=== PATIENT | male | born 1975 | race Caucasian/White ===

== ENCOUNTER 2016-08-16 19:17 | Inpatient (IN) | payer OTHER ==
--- NOTE | ~2016-08-16 | DS ---
Discharge Summary [facility] [address] [facility] [place]. [address] NAME: MARLON BLANCO : 71 STATUS : DIS IN PAT#: [id number] AGE: 40 ADM/REG DATE : 08/16/16 MR#: [id number] REPORT SERV DATE: 08/26/16 DICTATED BY: MARLON MOE DATE: 08/25/16 REPORT STATUS : Draft TRANSCRIBED BY: MODL DATE: 08/25/16 Data Collection from hospitalization DISCHARGE DIAGNOSES: 1. Displaced left femoral neck fracture. 2. Asthma. CONSULTATIONS: None. PROCEDURES: 1. Left total hip arthroplasty, 08/17/2016. 2. CT scan of the pelvis without contrast, 08/16/2016. PATHOLOGY: Bone and tissue, left hip - intramedullary hemorrhage (history of fracture with thin bone and trabeculae). DISCHARGE MEDICATIONS: Zyrtec 10 mg daily as needed, ferrous sulfate 300 mg before breakfast and supper, Advair Diskus one puff via inhaler twice a day, Theragran tablets one tablet daily, Percocet 5/325 one to two tablets every four hours as needed, and Coumadin 5 mg daily. CONDITION ON DISCHARGE: Stable. DISPOSITION: The patient was discharged home on a regular diet with activities as instructed. He would follow up at [facility], 08/24/2012. [facility], 08/22/2016. HOSPITAL COURSE: This is a 40-year-old man who slipped and fell while walking down a ramp on his back deck on the day prior to this admission. He fell on his left side. He had immediate onset of severe left hip pain and was unable to ambulate after the fall. He presented to the [facility] emergency room and x-rays revealed displaced left femoral neck fracture. Treatment options were discussed, and it was elected to proceed with surgical intervention. He was admitted to the hospital at this time for further evaluation and treatment. Upon admission, a CT scan of the pelvis was performed and showed acute impaction fracture of the left femoral neck fracture. The fracture apex was directed anteriorly. The following day, he was taken to the operating room where he underwent the above-mentioned procedure, he tolerated this well, and there were no complications. On postop day #1, he had normal distal pulses. He had good pain control. The FASHION CONSULTANT was discontinued. He remained medically stable. He was evaluated by Occupational and Physical Therapy. Discharge planning was performed. On 08/19/2016, he continued to progress. He had no edema. Discharge instructions were given. Due to his improved and stable condition, he was discharged home with the above-stated instructions. Information collected by: Vianey Mansfield Discharge Summary [id number] [place]. [address] NAME: MARLON BLANCO : 71 STATUS : DIS IN PAT#: [id number] AGE: 40 ADM/REG DATE : 08/16/16 MR#: [id number] REPORT SERV DATE: 08/26/16 DICTATED BY: MARLON MOE DATE: 08/25/16 REPORT STATUS : Draft TRANSCRIBED BY: JOSE ALBERTO DATE: 08/25/16 I submit the above information as my discharge summary. TG/JOSE ALBERTO Marlon Moe M.D. / [id number] CC: Niraj Olvera M.D.
--- NOTE | ~2016-08-16 | OP ---
Record Of Operation [facility] [address] [place]. [address] NAME: MARLON STOCK : 71 STATUS : ADM IN PAT#: [id number] AGE: 40 ADM/REG DATE : 08/16/16 MR#: [id number] REPORT SERV DATE: 08/17/16 DICTATED BY: MARLON MOE DATE: 08/17/16 REPORT STATUS : Draft TRANSCRIBED BY: MODL DATE: 08/17/16 DATE OF PROCEDURE: 08/17/2016 PREOPERATIVE DIAGNOSIS: Displaced left femoral neck fracture. POSTOPERATIVE DIAGNOSIS: Displaced left femoral neck fracture. PROCEDURE: Left total hip arthroplasty. SURGEON: Marlon Moe M.D. STORAGE FACILITY RENTAL CLERK: Tommie Caro. ANESTHESIA: General endotracheal. ESTIMATED BLOOD LOSS: 300 mL. COMPLICATIONS: None. DRAINS: ConstaVac x1. IMPLANTS: DePuy Limestone 56 mm outer diameter cup with a 36 mm inner diameter, +4 lateralized polyethylene liner. The femoral component was size 6 high offset [place] stem with a 36 mm, +8.5 head and neck segment. INDICATIONS FOR SURGERY: Mr. Stock is a 40-year-old male who sustained the above-mentioned fracture in a fall. It was recommended he undergo total hip arthroplasty. Risks of the procedure as detailed in the history and physical and operative consent were discussed prior to proceeding. He fully understood and has requested to proceed. PROCEDURE IN DETAIL: The patient was brought to the operating room and after adequate induction of anesthesia, was positioned in the lateral decubitus position using the hip die grinder positioners. All appropriate pressure points were padded and axillary roll was placed. The appropriate operative site was identified and confirmed by both the surgeon and the operating room staff in time out. The hip was then prepped and draped in the usual sterile fashion. A posterior lateral approach to the hip was performed. The skin and subcutaneous tissues were incised sharply using a #10 blade. Electrocautery was used as needed to maintain hemostasis. The fascia yi and fascia over the gluteus chad were divided in line with the incision. The fibers of the gluteus chad were split bluntly. The sciatic nerve was identified and carefully protected throughout the remainder of the case. The Charnley retractor was then placed. The hip was placed in internal rotation and the superior border of the piriformis tendon identified. A full thickness capsulotomy was begun at the superior border of the piriformis tendon and extended anteriorly/inferiorly using an Record Of Operation [facility] [address] [facility]. [address] NAME: MARLON STOCK : 71 STATUS : ADM IN PAT#: [id number] AGE: 40 ADM/REG DATE : 08/16/16 MR#: [id number] REPORT SERV DATE: 08/17/16 DICTATED BY: MARLON MOE DATE: 08/17/16 REPORT STATUS : Draft TRANSCRIBED BY: JOSE ALBERTO DATE: 08/17/16 inside/out technique. A portion of the short external rotators were taken down in the capsular exposure. Leg length measurements were then taken. The hip was then dislocated posteriorly. The femoral neck was then marked and resected at the predetermined level from templating using an oscillating saw. Attention was then turned to the femur and the medial aspect of the greater trochanter was debrided of all cortical bone and soft tissue. The intramedullary canal was opened with a triple reamer. The femur was then sequentially reamed to the appropriate size [place] stem. The femur was then sequentially broached, once again to the appropriately sized implant. The femoral neck resection was slightly revised using a calcar mill to bring it to the level of the femoral broach. The broach was then removed. Attention was then turned to the acetabulum and the acetabulum was debrided of all labral remnants, osteophytes, and the medial fibrofatty tissue was debrided and the true medial wall of the acetabulum identified. The acetabulum was then sequentially reamed from a size 43 mm hemispherical reamer to a reamer 1 mm smaller than the final component. At this level there was circumferential bleeding of subchondral bony surface. Any subchondral cysts were curetted. The true acetabular cup was then impacted into the acetabulum and a trial liner placed. A trial reduction was then performed. The leg lengths were felt to be equal. The hip was stable at its limited extension and external rotation and to 90 degrees of flexion and 80 degrees of internal rotation. The hip was also stable in the position of sleep. At this point all trial components were removed and the acetabular hole machine assembler for puller over placed in the acetabular shell. The true acetabular liner was then impacted in the clean acetabular shell. The femoral canal was then copiously irrigated with normal saline and suctioned dry. The true femoral stem was then impacted into the femur to an identical depth and identical anteversion of the trial component. A trial reduction was once again performed to assure that there was no change in leg length or stability. The true femoral head ball was then impacted into the clean femoral taper. The acetabulum was inspected to be sure it was free of all foreign matter and the hip reduced. The wound was copiously irrigated with pulsatile lavage and normal saline. The capsule was repaired using interrupted #1 Vicryl suture in [id number] fashion. The short external rotators were repaired using #5 Ethibond in horizontal mattress fashion. Drain placed deep to the fascia. The fascia was closed with interrupted #5 Ethibond sutures in [id number] fashion. The subcutaneous tissues approximated with interrupted 2-0 Vicryl suture and the skin stapled. Sterile dressing applied. The patient awakened and taken to the recovery room in stable condition. POSTOP PLAN: The patient is to be mobilized weightbearing as tolerated with physical therapy. Posterior hip dislocation precautions. The patient is to be on Coumadin and mechanical deep venous thrombosis prophylaxis. Record Of Operation [id number] [facility] [place]. [address] NAME: BELLAMARLONELL : 71 STATUS : ADM IN [facility]#: [id number] AGE: 40 ADM/REG DATE : 08/16/16 MR#: [id number] REPORT SERV DATE: 08/17/16 DICTATED BY: MARLON MOE DATE: 08/17/16 REPORT STATUS : Draft TRANSCRIBED BY: JOSE ALBERTO DATE: 08/17/16 JOHN/JOSE ALBERTO Marlon Moe M.D. / [id number] CC: Nriaj Olvera M.D.
--- NOTE | ~2016-08-16 | HP ---
History And Physical [id number] [facility] [place]. [address] NAME: MARLON STOCK : 71 STATUS : ADM IN [facility]#: [id number] AGE: 40 ADM/REG DATE : 08/16/16 MR#: [id number] REPORT SERV DATE: 08/17/16 DICTATED BY: MARLON MOE DATE: 08/17/16 REPORT STATUS : Draft TRANSCRIBED BY: MODL DATE: 08/17/16 DATE OF ADMISSION: 08/16/2016 CHIEF COMPLAINT: Left hip pain. HISTORY OF PRESENT ILLNESS: Mr. Stock is a 40-year-old male who slipped and fell walking down a ramp on his back deck yesterday. He fell on his left side. He had immediate onset of severe left hip pain and was unable to ambulate after the fall. He presented to [facility] Emergency Room where x-rays showed a displaced left femoral neck fracture. I have now been asked to see him for evaluation and treatment. On questioning, he complains of only left hip pain. He denies any loss of consciousness or mental status changes at the time of the fall. He has no previous history of any hip pain. PAST MEDICAL HISTORY: Significant for asthma. MEDICINES ON ADMISSION: Zyrtec 10 mg p.o. daily p.r.n., Advair Diskus one puff twice daily, and Motrin p.r.n. ALLERGIES: HE HAS NO KNOWN DRUG ALLERGIES. SOCIAL HISTORY: He lives at home with his family. He does not smoke or drink. REVIEW OF SYSTEMS: Negative for any recent history of chest pain or shortness of breath. He denies any history of cancer. He has no history of diabetes or other endocrine disorders. PHYSICAL EXAMINATION: GENERAL: He is awake, alert, and oriented. VITAL SIGNS: Temperature 97.8, pulse 77, and blood pressure 123/70. HEENT: Normocephalic and atraumatic. Pupils equal, round, and reactive. NECK: Nontender. HEART: Regular rate and rhythm. LUNGS: Clear to auscultation. ABDOMEN: Soft, nontender, and nondistended. EXTREMITIES: He has no evidence of bony injury to either upper extremity or his right lower extremity. With regard to his left lower extremity, it is shortened and externally rotated. He is non-tolerant to any attempted active or passive left hip range of motion due to severe pain. He has no tenderness in the mid thigh distally. He has normal sciatic nerve function on the left and palpable pedal pulses. DIAGNOSTIC STUDIES: X-rays of his left hip show displaced left femoral neck fracture. He just has kind of a possible lytic area in his left femoral head. However, CT scan does not show any evidence of a pathologic lesion associated with the fracture. IMPRESSION: Displaced left femoral neck fracture. History And Physical [address] [address] NAME: MARLON STOCK : 71 STATUS : ADM IN [facility]#: [id number] AGE: 40 ADM/REG DATE : 08/16/16 MR#: [id number] REPORT SERV DATE: 08/17/16 DICTATED BY: MARLON MOE DATE: 08/17/16 REPORT STATUS : Draft TRANSCRIBED BY: JOSE ALBERTO DATE: 08/17/16 I have discussed treatment options with Mr. Stock with recommendation for left total hip arthroplasty. Risks of the procedure were discussed including infection, neurovascular damage, DVT, PE, blood loss requiring transfusion, fracture, dislocation, leg length discrepancy, component loosening, component wear, anesthetic complications, and others. He has a good understanding and has requested to proceed with surgical scheduling. JOHN/JOSE ALBERTO Marlon Moe M.D. / [id number] CC: Niraj Olvera M.D.
[2016-08-16] MEDS ORDERED: ADVAIR250 INH (20:57)
[2016-08-16] MEDS ORDERED: ZYRTEC ALLGY10 MG PO (20:58)
[2016-08-16] MEDS ORDERED: ADVIL PO (20:58)
[2016-08-17 05:23] LABS: BASOPHILS 0.1 %; BASOPHILS ABSOLUTE 0.01 10/3/uL (0.0-0.16); EOSINOPHILS 1.3 %; EOSINOPHILS ABSOLUTE 0.09 10/3/uL (0.0-0.53); HEMATOCRIT 40.2 % (40.0-51.0); HEMOGLOBIN 14.2 g/dL (13.6-17.8); IMMATURE GRANULOCYTES 0.1 %; IMMATURE GRANULOCYTES ABSOLUTE 0.01 10/3/uL (0.0-0.11); LYMPHOCYTES 22.1 %; LYMPHOCYTES ABSOLUTE 1.52 10/3/uL (0.67-4.30); MEAN CORPUS HGB CONC 35.3 g/dL (32.0-36.0); MEAN CORPUSCULAR HEMOGLOB 31.3 pg (26.0-34.0); MEAN CORPUSCULAR VOLUME 88.5 fL (80-100); MEAN PLATELET VOLUME 9.4 fL (9.2-13.0); MONOCYTES 6.7 %; MONOCYTES ABSOLUTE 0.46 10/3/uL (0.21-1.20); NEUTROPHILS 69.7 %; NEUTROPHILS ABSOLUTE 4.79 10/3/uL (2.02-8.40); PLATELET COUNT 137 10/3/uL (150-400); RBC DISTRIBUTION WIDTH 12.4 % (12.0-16.0); RED CELL COUNT 4.54 10/6/uL (4.7-6.1); WHITE BLOOD CELLS 6.9 10/3/uL (4.5-10.5)
[2016-08-17 05:24] LABS: MANUAL DIFF NO %
[2016-08-17 05:35] LABS: BUN (BLOOD UREA NITROGEN) 13 MG/DL (6-23); CHLORIDE, SERUM 106 MMOL/L (96-112); CO2 (CARBON DIOXIDE) 27 MMOL/L (24-34); CREATININE 1.18 MG/DL (0.70-1.30); GFR AFRICAN AMERICAN 88 ML/MIN (>=60); GFR NON AFRICAN AMERICAN 76 ML/MIN (>=60); GLUCOSE, SERUM 117 MG/DL (60-99); POTASSIUM, SERUM 3.7 MMOL/L (3.5-5.3); SODIUM, SERUM 142 MMOL/L (135-148)
[2016-08-17 16:25] LABS: INTERNATIONAL NORMAL RATI 1.2 UNITS (-); PROTIME (NOT ORD) 14.7 SEC (12.0-14.5)
[2016-08-18 05:47] LABS: HEMOGLOBIN 12.1 g/dL (13.6-17.8)
[2016-08-18 06:11] LABS: HEMATOCRIT 34.2 % (40.0-51.0)
[2016-08-18 06:12] LABS: INTERNATIONAL NORMAL RATI 1.3 UNITS (-); PROTIME (NOT ORD) 15.8 SEC (12.0-14.5)
[2016-08-18 06:13] LABS: BUN (BLOOD UREA NITROGEN) 10 MG/DL (6-23); CHLORIDE, SERUM 106 MMOL/L (96-112); CO2 (CARBON DIOXIDE) 27 MMOL/L (24-34); CREATININE 0.96 MG/DL (0.70-1.30); GFR AFRICAN AMERICAN 113 ML/MIN (>=60); GFR NON AFRICAN AMERICAN 97 ML/MIN (>=60); GLUCOSE, SERUM 136 MG/DL (60-99); POTASSIUM, SERUM 4.4 MMOL/L (3.5-5.3); SODIUM, SERUM 140 MMOL/L (135-148)
[2016-08-19 06:26] LABS: HEMATOCRIT 34.3 % (40.0-51.0)
[2016-08-19 06:54] LABS: INTERNATIONAL NORMAL RATI 1.3 UNITS (-); PROTIME (NOT ORD) 15.6 SEC (12.0-14.5)
[2016-08-19] MEDS ORDERED: C5 PO (12:44)
[2016-08-19] MEDS ORDERED: PCET PO (12:45)
[2016-08-19] MEDS ORDERED: PEP20 PO (12:46)
[2016-08-19] MEDS ORDERED: DSS PO (12:46)
[2016-08-19] MEDS ORDERED: MVI PO (12:47)
[2016-08-19] MEDS ORDERED: FESO4 PO (12:47)
== END 2016-08-19 14:04 | disposition home or self-care (01) | DRG 470 ==
LOC: ER 19:17 → 1SO 20:56
PROVIDERS: Specialist
PROC: 0SRB02Z Replacement of Left Hip Joint with Metal on Polyethylene Synthetic Substitute, Open Approach (ICD-10-PCS; principal; 2016-08-17 10:30)
DX: S72.002A Fracture of unspecified part of neck of left femur, initial encounter for closed fracture (principal); J45.909 Unspecified asthma, uncomplicated; W18.30XA Fall on same level, unspecified, initial encounter; Z79.899 Other long term (current) drug therapy
CPT/HCPCS: 36415; 72170; 72192; 73502-LT; 73700-LT; 80048; 85014; 85018; 85025; 85610; 86850; 86900; 86901; 87641; 88305; 88311; 93005; 96374; 97110-GP; 97116-GP; 97161-GP; 97165-GO; 99285; A9270-GY; C1776; J0690; J2250; J2270; J2405; J2710; J3010